=== PATIENT | female | born 1950 | race Caucasian/White ===

== ENCOUNTER 2016-11-18 09:09 | Day surgery (SDCO) | payer MEDICARE ==
[~2016-11-18] VITALS: Ht 157.5 cm; Wt 76.0 kg
[2016-11-18 09:41] LABS: BASOPHIL 0.1 % (0-2); HCT 41.9 % (37.0-47.0); HGB 14.2 g/dl (12.5-16.0); LYMPHOCYTE 2.4 % (15-48); MCH 30.5 pg (25.0-31.0); MCHC 33.9 g/dL (32.0-36.0); MCV 89.9 fL (78.0-100.0); MONOCYTE 4.3 % (0-12); NEUTROPHIL 92.2 % (41-80); PLT 258 K/uL (150-400); RBC 4.66 M/uL (4.20-5.40); RDW 12.6 % (11.5-14.0)
[2016-11-18 09:44] LABS: WBC 21.6 K/uL (4.0-10.5)
[2016-11-18 09:46] LABS: INR 0.97 (0.9-1.2); PTT 24.1 SECONDS (24.3-32.1)
[2016-11-18 09:52] LABS: LACTIC ACID 1.6 mmol/L (0.5-2.2)
[2016-11-18 09:54] LABS: ALBUMIN 4.2 g/dL (3.4-4.8); BILIRUBIN - TOTAL 0.6 mg/dL (0.1-1.0); CREATININE 1.2 mg/dL (0.5-1.0); GLOBULIN (CALCULATION) 2.3 g/dL (2.2-4.2); POTASSIUM 4.1 mmol/L (3.5-5.1); TOTAL PROTEIN 6.5 g/dL (6.4-8.3)
[2016-11-18 09:55] LABS: CKMB 2.06 ng/mL (0.97-4.94); TROPONIN T < 0.010 ng/mL
[2016-11-18 10:51] LABS: BILIRUBIN 1+ mg/dL (NEGATIVE); BLOOD NEGATIVE Ery/uL (NEGATIVE); CLARITY CLEAR (CLEAR); GLUCOSE (U) NORMAL (NORMAL); KETONE (U) TRACE mg/dL (NEGATIVE); LEUKOCYTES NEGATIVE Leu/uL (NEGATIVE); NITRITE NEGATIVE (NEGATIVE); PROTEIN 1+ mg/dL (NEGATIVE); UROBILINOGEN 0.2 mg/dL (0.2-1.0); pH 5.5 (5.0-9.0)
[2016-11-18 10:56] LABS: COLOR AMBER (YELLOW)
[2016-11-18 11:00] LABS: BACTERIA TRACE
[2016-11-19 05:42] LABS: HCT 34.5 % (37.0-47.0); HGB 11.4 g/dl (12.5-16.0); MCH 30.3 pg (25.0-31.0); MCV 91.8 fL (78.0-100.0); RBC 3.76 M/uL (4.20-5.40); RDW 12.9 % (11.5-14.0)
[2016-11-19 06:00] LABS: MAGNESIUM 1.57 mg/dL (1.40-2.10); POTASSIUM 3.9 mmol/L (3.5-5.1)
== END 2016-11-19 17:40 | disposition home or self-care (01) ==
LOC: FER 09:09 → FMS 11:30
PROVIDERS: Emergency Medicine; Internal Medicine; ADMIT Internal Medicine
DX: N39.0 Urinary tract infection, site not specified (principal); D72.829 Elevated white blood cell count, unspecified; I10 Essential (primary) hypertension; E03.9 Hypothyroidism, unspecified; E78.5 Hyperlipidemia, unspecified; K21.9 Gastro-esophageal reflux disease without esophagitis; F32.9 Major depressive disorder, single episode, unspecified; K29.40 Chronic atrophic gastritis without bleeding; G40.909 Epilepsy, unspecified, not intractable, without status epilepticus; G47.00 Insomnia, unspecified; G47.33 Obstructive sleep apnea (adult) (pediatric); Z86.73 Personal history of transient ischemic attack (TIA), and cerebral infarction without residual deficits; Z87.891 Personal history of nicotine dependence; Z87.01 Personal history of pneumonia (recurrent); Z99.89 Dependence on other enabling machines and devices; Z83.3 Family history of diabetes mellitus; Z88.8 Allergy status to other drugs, medicaments and biological substances; Z88.5 Allergy status to narcotic agent; Z88.0 Allergy status to penicillin; Z88.2 Allergy status to sulfonamides; Z88.1 Allergy status to other antibiotic agents; Z90.49 Acquired absence of other specified parts of digestive tract; Z79.82 Long term (current) use of aspirin; Z79.899 Other long term (current) drug therapy; Z98.890 Other specified postprocedural states
CPT/HCPCS: 36415; 70450; 71010; 80048; 80053; 81001; 82533; 82550; 82553; 83605; 83735; 84145; 84146; 84443; 84484; 85025; 85379; 85610; 85651; 85730; 86140; 86308; 87040; 87450; 93005; G0378; J2405